=== PATIENT | female | born 2000 | race Caucasian/White ===

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

== ENCOUNTER 2020-12-26 21:22 | Emergency (ER) | payer SELFPAY ==
[~2020-12-26] VITALS: Ht 167.6 cm; Wt 54.8 kg
[~2020-12-26 21:22] MED LIST: CLIN300C9 PO; OMEP20TA62 PO
--- NOTE | 2020-12-26 21:40 | NUR ---
patient resting in bed. patient tachycardic as seen on monitoring device and placed on cardiac tele monitoring as well. HR 120's. Jong GUEVARA at bedside for exam. droplet/contact precautions maintained. patient diagnosed with COVID 2 weeks prior to today's visit and reports having symptoms for 1 month. she states she had been feeling better but today started exhibiting SOB at times and a cough. call dick in reach. safety maintained. will continue to monitor
[2020-12-26] MEDS ORDERED: MELA1TAB19 SL (21:43)
[2020-12-26] MEDS ORDERED: SODIUM CHLORIDE 0.9% 1,000ML IVBOLUS ONE (22:00)
--- NOTE | 2020-12-26 22:03 | NUR ---
patient ambulated to bathroom with steady gait. in NAD. no SOB noted on ambulation
[2020-12-26] MEDS ORDERED: DEXAMETHASONE 4 MG TABLET ONE (22:18)
[2020-12-26] MEDS ORDERED: IBUPROFEN 800 MG TABLET ONE (22:19)
[2020-12-26] MEDS ORDERED: IBUPROFEN 800 MG TABLET PO ONE (22:30)
[2020-12-26] MEDS ORDERED: DEXAMETHASONE 4 MG TABLET PO ONE (22:30)
--- NOTE | 2020-12-26 23:02 | NUR ---
patient resting in bed in NAD. call dick in reach. safety maintained. finishing IVF and then DC. patient notified and aware of plan
--- NOTE | 2020-12-26 23:10 | NUR ---
discharge instructions reviewed with patient. no further questions. prescription handed directly to patient. IV removed per dc protocol. steady gait to lobby. registration will call patient after departure and patient notified of this. good number to reach her is [phone]. all personal belongings with patient
[2020-12-26 23:22] VITALS: BP 110/65
== END 2020-12-26 23:25 | disposition home or self-care (01) ==
LOC: ED 21:45
DX: B34.9 Viral infection, unspecified (principal); R00.0 Tachycardia, unspecified; R06.02 Shortness of breath; Z87.11 Personal history of peptic ulcer disease
CPT/HCPCS: 71045; 93005; 96360; 99283; J7030